=== PATIENT | female | born 1955 | race Caucasian/White ===

== ENCOUNTER 2022-03-19 22:00 | Emergency (ER) | payer MEDICARE ==
[~2022-03-19] VITALS: Ht 165.1 cm; Wt 81.6 kg
[2022-03-19 22:00] VITALS: BP 129/59
[2022-03-19] MEDS ORDERED: NALOXONE PFS 2 MG/2 ML SYR IVP ONE (22:05)
[2022-03-19] MEDS ORDERED: ACETAMINOPHEN 650 MG SUPP RC ONE (22:10)
[2022-03-19] MEDS ORDERED: NACL 0.9% 2,000 ML IV ONE (22:10)
--- NOTE | 2022-03-19 22:19 | NUR ---
PT TO CT WITH RN
--- NOTE | 2022-03-19 22:19 | NUR ---
PT TAKEN TO CT
[2022-03-19 22:26] LABS: BASOPHILS % (AUTO) 0.2 % (0.0-2.0); EOSINOPHILS # (AUTO) 0.1 K/uL (0-0.4); EOSINOPHILS % (AUTO) 0.6 % (0.0-4.0); HEMATOCRIT 38.1 % (36-48); HEMOGLOBIN 12.9 g/dL (12.0-16.0); LYMPHOCYTES # (AUTO) 0.7 K/uL (2.5-16.5); LYMPHOCYTES % (AUTO) 4.7 % (20.5-51.1); MEAN CORPUSCULAR HEMOGLOBIN 31 pg (27-31); MEAN CORPUSCULAR HGB CONC 34 g/dL (33-37); MEAN CORPUSCULAR VOLUME 92.7 fL (80-94); MONOCYTES # (AUTO) 1.3 K/uL (0.8-1.0); MONOCYTES % (AUTO) 9.5 % (1.7-9.3); NEUTROPHILS # (AUTO) 12.1 K/uL (1.8-7.7); PLATELET COUNT (AUTO) 101 K/uL (140-450); RED BLOOD CELL COUNT(AUTO) 4.11 MIL/uL (4.20-5.40); WHITE BLOOD COUNT (AUTO) 14.3 K/uL (4.8-10.8)
[2022-03-19 22:44] LABS: SALICYLATE < 2.8 mg/dL (2.8-20.0)
[2022-03-19 22:52] LABS: ALBUMIN 3.2 g/dL (3.4-5.0); ANION GAP 14.4 (8-16); ASPARTATE AMINOTRANSFERASE 57 U/L (15-37); CARBON DIOXIDE 23.2 mmol/L (21-32); CHLORIDE 99 mmol/L (98-107); CREATININE 1.3 mg/dL (0.6-1.3); GFR ARICAN-AMERICAN 53 mL/min (>90); GLUCOSE 122 mg/dL (74-106); POTASSIUM 4.6 mmol/L (3.5-5.1); SODIUM SERUM 132 mmol/L (136-145); TOTAL BILIRUBIN 2.8 mg/dL (0.0-1.0); UREA NITROGEN, BLOOD 24 mg/dL (7-18)
[2022-03-19 22:53] LABS: ACETAMINOPHEN < 0.5 ug/ml (10-30)
[2022-03-19] MEDS ORDERED: VANCOMYCIN 1,000 MG in DEXTROSE 5% 250 ML IV ONE (23:00)
[2022-03-19] MEDS ORDERED: cefTRIAXone 1,000 MG VIAL ONE (23:15)
[2022-03-19] MEDS ORDERED: VANCOMYCIN 1,000 MG VIAL ONE (23:49)
--- NOTE | 2022-03-20 00:41 | NUR ---
# 15 FR Urinary catheter inserted utilizing sterile technique. Immediate return of 60 ml CLEAR YELLOW urine noted. Urine sample collected and sent to lab. Pt tolerated procedure WELL.
--- NOTE | 2022-03-20 00:42 | NUR ---
P IS NOW A/OX1 PERSON ONLY. GCS14 (E:4, V:4, M:6). PT IS COMMUNICATING MORE AND ANSWERING QUESTIONS BUT STILL DISORIENTED.
[2022-03-20 00:50] LABS: APPEARANCE,URINE SL CLOUDY (CLEAR); BILIRUBIN,URINE NEGATIVE (NEGATIVE); BLOOD, URINE 3+ (NEGATIVE); COLOR,URINE YELLOW (YELLOW); LEUKOCYTE ESTERASE ,URINE 1+ (NEGATIVE); NITRITE, URINE POSITIVE (NEGATIVE); UGLUCOSE NEGATIVE (NEGATIVE)
[2022-03-20 01:04] LABS: RBC,URINE 0-5 /HPF (0-5)
[2022-03-20 01:05] LABS: WBC,URINE TOO MANY TO COUNT /HPF (0-5)
[2022-03-20 03:01] VITALS: BP 110/64
--- NOTE | 2022-03-20 03:03 | NUR ---
Patient to be transferred to [facility]. Is being transferred due to INSURANCE. Receiving facility has accepting physician and available space. ER physician has signed transfer form. Patient or responsible democrat has agreed to transfer and signed form. Patient belongings inventoried and will be sent with patient. Copy of nursing notes, lab reports, EKG, Physicians Orders and X-rays to be sent with patient. Report called to JOSE ALLAN at receiving facility. [facility] ambulance service has been called for transfer.
--- NOTE | 2022-03-20 03:06 | NUR ---
PT LEAVING WITH [facility] AT THIS TIME
--- NOTE | 2022-03-20 03:10 | NUR ---
SPOKE WITH DAUGHTER, ELYSIA, TO INFORM OF PT'S TRANSFER TO [facility]. POC [phone]
--- NOTE | 2022-03-22 18:45 | NUR ---
LATE ENTRY. POSITIVE URINE CULTURE RECEIVED. FORM GIVEN TO DR SEBASTIAN, TREATMENT APPROPRIATE. FORM PLACED IN BINDER
== END 2022-03-20 02:49 | disposition short-term general hospital (02) ==
LOC: MED 22:00
DX: K52.9 Noninfective gastroenteritis and colitis, unspecified (principal); Z20.822 Contact with and (suspected) exposure to COVID-19; R65.20 Severe sepsis without septic shock; Z98.890 Other specified postprocedural states
CPT/HCPCS: 36415; 36600; 70450; 71045; 74176; 80053; 81001; 82140; 82550; 82553; 82803; 83605; 84484; 85025; 87040; 87086; 87426; 93005; 96365; 96367; 96375; 99291; G0480; G0482; J0696; J2310; J3370; J7030

== ENCOUNTER 2024-01-11 07:52 | Emergency (ER) | payer MEDICARE ==
[~2024-01-11] VITALS: Ht 154.9 cm; Wt 104.3 kg
[2024-01-11 07:54] VITALS: BP 129/57; PULSE 60; RESP 15; TEMP 98.6; O2SAT 96
[2024-01-11 08:45] LABS: BASOPHILS % (AUTO) 0.6 % (0.0-2.0); EOSINOPHILS # (AUTO) 0.2 K/uL (0-0.4); EOSINOPHILS % (AUTO) 4.4 % (0.0-4.0); HEMATOCRIT 37.6 % (36-48); HEMOGLOBIN 12.8 g/dL (12.0-16.0); LYMPHOCYTES # (AUTO) 0.6 K/uL (2.5-16.5); LYMPHOCYTES % (AUTO) 10.4 % (20.5-51.1); MEAN CORPUSCULAR HEMOGLOBIN 32 pg (27-31); MEAN CORPUSCULAR HGB CONC 34 g/dL (33-37); MEAN CORPUSCULAR VOLUME 95.1 fL (80-94); MONOCYTES # (AUTO) 0.4 K/uL (0.8-1.0); MONOCYTES % (AUTO) 7.6 % (1.7-9.3); NEUTROPHILS # (AUTO) 4.3 K/uL (1.8-7.7); PLATELET COUNT (AUTO) 93 K/uL (140-450); RED BLOOD CELL COUNT(AUTO) 3.95 MIL/uL (4.20-5.40); RED CELL DISTRIBUTION WIDTH 14.5 % (11.6-13.7); WHITE BLOOD COUNT (AUTO) 5.6 K/uL (4.8-10.8)
[2024-01-11 09:37] LABS: ACETAMINOPHEN 3.2 ug/ml (10-30); ALANINE AMINOTRANSFERASE 18 U/L (12-78); ALBUMIN 3.2 g/dL (3.4-5.0); ALCOHOL, BLOOD < 3 mg/dL (<10); ALKALINE PHOSPHATASE 97 U/L (50-136); ANION GAP 14.2 (8-16); ASPARTATE AMINOTRANSFERASE 35 U/L (15-37); CALCIUM 9.4 mg/dL (8.5-10.1); CARBON DIOXIDE 24.9 mmol/L (21-32); CHLORIDE 104 mmol/L (98-107); CREATININE 1.1 mg/dL (0.6-1.3); GFR ARICAN-AMERICAN 64 mL/min (>90); GFR NON ARICAN-AMERICAN 52 mL/min (>90); GLUCOSE 142 mg/dL (74-106); POTASSIUM 4.1 mmol/L (3.5-5.1); SODIUM SERUM 139 mmol/L (136-145); TOTAL BILIRUBIN 1.9 mg/dL (0.0-1.0); TOTAL PROTEIN, SERUM 5.6 g/dL (6.4-8.2); UREA NITROGEN, BLOOD 22 mg/dL (7-18)
[2024-01-11 09:51] LABS: SALICYLATE < 2.8 mg/dL (2.8-20.0)
[2024-01-11 10:17] LABS: APPEARANCE,URINE CLEAR (CLEAR); BILIRUBIN,URINE NEGATIVE (NEGATIVE); BLOOD, URINE 1+ (NEGATIVE); COLOR,URINE YELLOW (YELLOW); LEUKOCYTE ESTERASE ,URINE 2+ (NEGATIVE); NITRITE, URINE POSITIVE (NEGATIVE); PH,URINE 6.5 (5.0-9.0); PROTEIN,URINE NEGATIVE (NEGATIVE); UGLUCOSE NEGATIVE (NEGATIVE); UROBILINOGEN,URINE 0.2 EU/dL (0.2 - 1)
[2024-01-11] MEDS: LACTULOSE 20 GM/30 ML UDC PO ONE (10:25)
[2024-01-11 10:36] LABS: BACTERIA,URINE 4+ /HPF (None Seen); OTHER CASTS, URINE WBC CASTS 1+ /LPF (None Seen); RBC,URINE 11-20 (MOD) /HPF (0-5); SQUAMOUS EPITHELIAL CELL,UR 0-3 (FEW) /LPF (0-3 (FEW)); WBC,URINE >25 (MANY) /HPF (0-5)
[2024-01-11] MEDS ORDERED: SUCR1SUS7 PO (11:21)
[2024-01-11] MEDS ORDERED: RIFA550T PO (11:21)
[2024-01-11] MEDS ORDERED: PANT40EC PO (11:21)
[2024-01-11] MEDS ORDERED: LACT-191 PO (11:21)
[2024-01-11] MEDS ORDERED: FURO-570 PO (11:21)
[2024-01-11] MEDS ORDERED: SPIR50TA PO ×2 (11:21)
[2024-01-11] MEDS ORDERED: cefTRIAXone 1,000 MG VIAL ONE (11:38)
[2024-01-11 13:00] VITALS: BP 137/65; PULSE 57; RESP 16; TEMP 98.3; O2SAT 99
== END 2024-01-11 13:37 | disposition home or self-care (01) ==
LOC: MED 07:52
DX: K76.82 Hepatic encephalopathy (principal); N39.0 Urinary tract infection, site not specified; D69.6 Thrombocytopenia, unspecified; R41.82 Altered mental status, unspecified; Z79.899 Other long term (current) drug therapy
CPT/HCPCS: 36415; 70450; 80053; 81001; 82140; 82948; 83605; 84484; 85025; 87086; 87186; 93005; 96365; 99285; G0480; G0482; J0696